=== PATIENT | male | born 1995 | race Caucasian/White ===

== ENCOUNTER 2019-01-22 14:37 | Emergency (ER) | payer OTHER ==
[~2019-01-22] VITALS: Ht 185.4 cm; Wt 95.2 kg
[~2019-01-22 14:37] MED LIST: BACPOLTO30 TP; CEPH500 PO; NAPR500 PO; Prednisone20 MG PO; RXCODACET PO
[2019-01-22] MEDS ORDERED: Crutch1 EACH MISC (16:06)
== END 2019-01-22 16:17 | disposition home or self-care (01) ==
LOC: ER 14:37
DX: S93.401A Sprain of unspecified ligament of right ankle, initial encounter (principal); W17.89XA Other fall from one level to another, initial encounter; Z91.030 Bee allergy status
CPT/HCPCS: 29515; 73610; 99283-25